=== PATIENT | female | born 1960 | race Caucasian/White ===

== ENCOUNTER 2016-11-03 18:55 | Emergency (ER) | payer OTHER ==
[2016-11-03 19:22] VITALS: BP 164/123
[2016-11-03] MEDS ORDERED: Lidocaine 1% 50 ML MDV INJECT ONE (19:30)
--- NOTE | 2016-11-03 20:13 | EDM.PDOC ---
ED HPI Skin/Rash - General Chief Complaint: Laceration Stated Complaint: LACERATION TO LEFT HAND Time Seen by Provider: 11/03/16 19:17 Source: Reports: Patient History Limitations: Reports: No limitations - History of Present Illness INITIAL COMMENTS - FREE TEXT/NARRATIVE: The patient presents with a laceration to her left index finger. She cut the tip of her finger while trying to separate some hamburger patties. It is about 1cm and it is through the edge of the nail. She is right handed and her tetanus is up to date. Timing: Reports: still present Location, Skin: Reports: upper extremity, left (index finger) Quality: Reports: Sharp Severity: moderate Place of Occurrence: home Associated Symptoms: Reports: no other symptoms - Related Data Allergies Allergy/AdvReac Type Severity Reaction Status Date / Time ibuprofen Allergy Hives Verified 11/03/16 19:17 Home Meds: Ambulatory Orders Medication Instructions Recorded Confirmed Fenofibrate Nanocrystallized 145 mg PO DAILY 08/16/15 04/20/16 [Tricor] Levothyroxine [Synthroid] 50 mcg PO DAILY 08/16/15 04/20/16 amLODIPine/Valsartan 10 - 160 mg PO DAILY 08/16/15 04/20/16 [Amlodipine-Valsartan 5-160 mg] EPINEPHrine [Epipen] 0.3 mg IM ONETIME #1 pack 04/20/16 Estradiol 0.5 mg PO DAILY 04/20/16 04/20/16 Past Medical History Cardiovascular History: Reports: High cholesterol, Hypertension Gastrointestinal History: Reports: GERD Genitourinary History: Reports: UTI, recurrent [employer] History: Reports: Neurological History: Reports: Migraines Psychiatric History: Reports: Anxiety, Depression Endocrine/Metabolic History: Reports: Hypothyroidism - Infectious Disease History Infectious Disease History: Reports: Chicken pox, Measles - Past Surgical History GI Surgical History: Reports: Appendectomy, Cholecystectomy Female Surgical History: Reports: Hysterectomy Social & Family History - Tobacco Use Smoking Status *Q: Unknown Ever Smoked Years of Tobacco use: 35 Packs/Tins Daily: 1 - Recreational Drug Use Recreational Drug Use: No - Living Situation & Occupation Living situation: Reports: , with spouse Occupation: unemployed ED ROS GENERAL - Review of Systems Review Of Systems: See Below Constitutional: Reports: no symptoms HEENT: Reports: No symptoms Respiratory: Reports: No Symptoms Cardiovascular: Reports: No symptoms Endocrine: Reports: no symptoms GI/Abdominal: Reports: No symptoms : Reports: no symptoms Musculoskeletal: Reports: other (Laceration to the tip of the left index finger) ED EXAM, SKIN/RASH Exam: See Below Exam Limited By: No limitations General Appearance: alert, no apparent distress Ears: normal external exam Nose: normal inspection Head: atraumatic, normocephalic Neck: normal inspection Respiratory/Chest: no respiratory distress Extremities: other (1cm laceration through the tip of the left index finger and through the edge of her nail) ED SKIN PROCEDURES - Laceration/Wound Repair Left Finger Lac/wound length in cm: 1 Appearance: subcutaneous Distal NVT: neuro & vascular intact Anesthetic type: local Local anesthesia - Lidocaine (Xylocaine): 1% plain Skin prep: saline Exploration/Debridement/Repair: wound explored, in a bloodless field, explored to base Closed with: sutures Suture size: 4-0 # of sutures: 2 Suture type: nylon, interrupted, simple Tetanus status addressed: Yes Complications: No Course - Vital Signs Last Recorded V/S: Last Vital Signs Temp 97.8 F 11/03/16 19:18 Pulse 67 11/03/16 19:18 Resp 16 11/03/16 19:18 BP 164/123 H 11/03/16 19:18 Pulse Ox 100 11/03/16 19:18 - Orders/Labs/Meds Meds: Medications Discontinued Medications Generic Name Dose Route Start Last Admin Trade Name Jerardo PRN Reason Stop Dose Admin Lidocaine HCl 50 ml 11/03/16 19:30 11/03/16 19:39 Xylocaine 1% INJECT 11/03/16 19:31 50 ml ONETIME ONE Administration Departure - Departure Time of Disposition: 20:20 Disposition: Home, Self-Care 01 Condition: good Clinical Impression: Laceration of left index finger Forms: ED Department Discharge Additional Instructions: Soak your finger in warm soapy water 2 times per day and apply antibiotic ointment after. Have the sutures removed in 1 week. Look for any sign of infecetion such as redness, swelling, pain or drainage. Please return if you are worse.
== END 2016-11-03 20:30 | disposition home or self-care (01) ==
LOC: JD.ED 18:55
DX: S61.211A Laceration without foreign body of left index finger without damage to nail, initial encounter (principal); E78.00 Pure hypercholesterolemia, unspecified; I10 Essential (primary) hypertension; K21.9 Gastro-esophageal reflux disease without esophagitis; Z87.440 Personal history of urinary (tract) infections; F41.9 Anxiety disorder, unspecified; F32.9 Major depressive disorder, single episode, unspecified; E03.9 Hypothyroidism, unspecified; Z90.49 Acquired absence of other specified parts of digestive tract; Z88.6 Allergy status to analgesic agent; W45.8XXA Other foreign body or object entering through skin, initial encounter
CPT/HCPCS: 12001; 99282-25; 99283-25